=== PATIENT | female | born 1930 | race Hispanic/Latino ===

== ENCOUNTER 2018-09-30 18:35 | Emergency (ER) | payer MEDICARE ==
[~2018-09-30] VITALS: Ht 154.9 cm; Wt 55.8 kg
[~2018-09-30 18:35] MED LIST: AMIODARONE HCL200 MG PO; ASPIR-LOW81 MG PO; ASPIRIN325 MG PO; CARAFATE1 GM/10 ML PO; COREG3.125 MG; DIOVAN160 MG PO; HYDRALAZINE HC100 MG PO; ISOSORBIDE MONO30 MG PO; LASIX40 MG PO; LIPITOR20 MG PO; LISINOPRIL10 MG PO; LOPRESSOR25 MG PO; NIFEDICAL XL30 MG PO; NITRO-BID1 GM TOP; PANTOPRAZOLE SO40 MG PO; PLAVIX75 MG PO; POTASSIUM CHLO10 MEQ PO; TOPROL XL25 MG PO; ULTRAM50 MG PO
--- OUTSIDE RECORDS SUMMARY | 2018-09-30 18:38 | XMS REPORT | Clinical Summary ---
Author Author [facility] Address Unknown Phone Unavailable Care Team Providers Care Internal Control Analyst Name Role Phone Car Padilla MD PCP Allergies Comments Active Allergy Reactions Severity Noted Date Chest pain Diphenhydramine Hcl Other (See Low 06/29/2017 Comments) Neck Stiffness Iodine And Iodide Rash Low 06/29/2017 Containing Products Medications End Date Status Medication Sig Dispensed Refills Start Date Active metoprolol (TOPROL-XL) 25 Take 25 mg by 0 MG 24 hr tablet mouth daily. Active traMADol (ULTRAM) 50 mg Take 1 tablet 30 tablet 0 tablet (50 mg total) 7 by mouth 2 (two) times daily as needed for Pain. Max Daily Amount: 100 mg Active isosorbide mononitrate Take 1 tablet 30 tablet 0 (IMDUR) 60 MG 24 hr (60 mg total) 7 tablet by mouth daily. 06/26/2018 acetaminophen (TYLENOL) Take 2 30 tablet 0 325 MG tablet tablets (650 7 mg total) by mouth every 6 (six) hours as needed for Pain for up to 360 days. 07/02/2018 folic acid (FOLVITE) 1 MG Take 1 tablet 30 tablet 0 tablet (1 mg total) 7 by mouth daily You may take this over the counter if you like. 07/07/2018 ergocalciferol Take 1 4 capsule 0 (ERGOCALCIFEROL) 50,000 capsule 7 unit capsule (50,000 Units total) by mouth once a week. 07/02/2018 clopidogrel (PLAVIX) 75 Take 1 tablet 30 tablet 0 mg tablet (75 mg total) 7 by mouth daily. 07/01/2018 atorvastatin (LIPITOR) 80 Take 1 tablet 30 tablet 0 MG tablet (80 mg total) 7 by mouth nightly. 07/02/2018 aspirin 81 MG chewable Take 1 tablet 30 tablet 0 tablet (81 mg total) 7 by mouth daily You may take this over the counter. 07/02/2018 amLODIPine (NORVASC) 5 MG Take 1 tablet 30 tablet 0 tablet (5 mg total) 7 by mouth daily. Active Problems Problem Noted Date Elevated troponin 06/29/2017 Hypertension 06/29/2017 CKD (chronic kidney disease) stage 5, GFR less than 15 ml/min 06/29/2017 Coronary artery disease 06/29/2017 Immunizations Name Dates Previously Given Next Due Influenza High Dose 06/29/2017 Preservative Free IM Family History Medical History Relation Name Comments No Known Problem Father No Known Problem Mother Relation Name Status Comments Father Mother Social History Date Tobacco Use Types Packs/Day Years Used Never Smoker Smokeless Tobacco: Never Used Alcohol Use Drinks/Week oz/Week Comments No Sex Assigned at Date Recorded Not on file Industry Job Start Date Occupation Not on file Not on file Not on file Travel End Travel History Travel Start No recent travel history available. Last Filed Vital Signs Not on file Plan of Treatment Not on file Results Not on fileafter 09/29/2017 Insurance Payer Benefit Subscriber ID Type Phone Address Plan / Group [facility] MEDICARE [employer]GD [facility] xxxxxxxx [employer] (Home) [place] [address] Advance Directives For more information, please contact: [facility] [address] [place] [address] Date Inactivated Comments Code Status Date Activated 07/01/2017 2:31 PM Partial Code 06/29/2017 4:27 AM This code status was determined by: Patient Drug Protocol After Arrest Occurs? Yes Mechanical Ventilation with Intubation? No Bag/Mask? No Internal/External Pacemaker? No Transfer to Critical Care? No Chest Compressions? No Defibrillation/Cardioversion? No
--- OUTSIDE RECORDS SUMMARY | 2018-09-30 18:39 | XMS REPORT ---
Author Author [facility] Address Unknown Phone Unavailable Care Team Providers Care Customer Supply Coordinator Name Role Phone MER LUGO Unavailable Unavailable SWEET, Chan LAIRD Unavailable Unavailable Problems This patient has no known problems. Allergies, Adverse Reactions, Alerts This patient has no known allergies or adverse reactions. Medications This patient has no known medications. Results Test Description Test Time Test Comments Text Results Atomic Results Result Comments IMMUNOFIXATION ELECTROPHORESIS (KELSEY) 2017-07-13 09:06:00 IMMUNOGLOBULIN G (IGG) (BEAKER) (test hvky=064) mg/dL 540-1822 Test not performed. IMMUNOGLOBULIN A (IGA) (BEAKER) (test fxgo=991) mg/dL 63-484 Test not performed IMMUNOGLOBULIN M (IGM) (BEAKER) (test hrqh=598) mg/dL 22-293 Test not performed. SERUM KELSEY ID (BEAKER) (test cuxh=9650) Immunofixation studies reveal one free lambda monoclonal protine, and two trace concentration bands which appear to type as IgG-kappa monoclonal proteins. [id number] (BEAKER) (test pbgo=1763) Test performed and interpreted by [facility]. PROTEIN ELECTROPHORESIS, [id number] 16:38:00* Test Item Value Reference Range Comments ALBUMIN FRACTION (BEAKER) (test jeje=323) 3.5 gm/dL 3.5-5.5 RR: 3.8-4.8 g/dL ALPHA 1 FRACTION (BEAKER) (test cyna=073) 0.3 gm/dL 0.2-0.4 RR: 0.2-0.3 g/dL ALPHA 2 FRACTION (BEAKER) (test mtnu=043) 0.5 gm/dL 0.5-0.9 BETA FRACTION (BEAKER) (test idjk=569) 0.6 gm/dL 0.6-1.1 GAMMA GLOBULIN FRACTION (BEAKER) (test uwog=959) 1.1 gm/dL 0.7-1.7 RR: 0.8-1.7 g/dL INTERPRETATION-119 (BEAKER) (test xurr=0328) Evaluation reveals one or more faint restricted bands migrating in the gamma region. Consider immunofixation analysis if indicated. [id number] (BEAKER) (test hfil=6835) Test performed and interpreted by [facility]. PROTEIN TOTAL SERUM, SPEP (BEAKER) (test derh=1143) 6.0 gm/dL 6.0-8.3 RR: 6.1- 8.1 g/dL BASIC METABOLIC [id number] 06:57:00* Test Item Value Reference Range Comments SODIUM (BEAKER) (test jvmy=923) 139 meq/L 136-145 POTASSIUM (BEAKER) (test aowx=698) 4.2 meq/L 3.5-5.1 CHLORIDE (BEAKER) (test repa=360) 115 meq/L 98-107 CO2 (BEAKER) (test jdlw=385) 17 meq/L 22-29 BLOOD UREA NITROGEN (BEAKER) (test ctii=237) 47 mg/dL 7-21 CREATININE (BEAKER) (test olfu=070) 2.71 mg/dL 0.57-1.25 GLUCOSE RANDOM (BEAKER) (test kswq=275) 85 mg/dL 70-105 CALCIUM (BEAKER) (test uadu=471) 8.3 mg/dL 8.4-10.2 EGFR (BEAKER) (test aaes=8706) 17 mL/min/1.73 sq m ESTIMATED GFR IS NOT ACCURATE CREATININE CLEARANCE IN PREDICTING GLOMERULAR FILTRATION RATE. ESTIMATED GFR IS NOT APPLICABLE FOR DIALYSIS PATIENTS. [id number] 06:56:00* Test Item Value Reference Range Comments PHOSPHORUS (BEAKER) (test nsbg=594) 2.6 mg/dL 2.3-4.7 [id number] 06:56:00* Test Item Value Reference Range Comments MAGNESIUM (BEAKER) (test stmy=328) 2.2 mg/dL 1.6-2.6 CBC W/PLT COUNT & AUTO [id number] 06:24:00* Test Item Value Reference Range Comments WHITE BLOOD CELL COUNT (BEAKER) (test osaz=077) 3.5 K/ L 3.5-10.5 RED BLOOD CELL COUNT (BEAKER) (test syay=209) 2.62 M/ L 3.93-5.22 HEMOGLOBIN (BEAKER) (test osul=453) 8.0 GM/DL 11.2-15.7 HEMATOCRIT (BEAKER) (test wjje=548) 25.0 % 34.1-44.9 MEAN CORPUSCULAR VOLUME (BEAKER) (test nyuz=944) 95.4 fL 79.4-94.8 MEAN CORPUSCULAR HEMOGLOBIN (BEAKER) (test nxzl=810) 30.5 pg 25.6-32.2 MEAN CORPUSCULAR HEMOGLOBIN CONC (BEAKER) (test jrvg=398) 32.0 GM/DL 32.2-35.5 RED CELL DISTRIBUTION WIDTH (BEAKER) (test wqdu=118) 14.0 % 11.7-14.4 PLATELET COUNT (BEAKER) (test zxpt=063) 127 K/CU MM 150-450 MEAN PLATELET VOLUME (BEAKER) (test zmrq=512) 11.4 fL 9.4-12.3 NUCLEATED RED BLOOD CELLS (BEAKER) (test fwyt=315) 0 /100 WBC 0-0 NEUTROPHILS RELATIVE PERCENT (BEAKER) (test oukq=184) 43 % LYMPHOCYTES RELATIVE PERCENT (BEAKER) (test acwo=328) 30 % MONOCYTES RELATIVE PERCENT (BEAKER) (test lyst=105) 18 % EOSINOPHILS RELATIVE PERCENT (BEAKER) (test fpcu=946) 8 % BASOPHILS RELATIVE PERCENT (BEAKER) (test ekax=083) 1 % NEUTROPHILS ABSOLUTE COUNT (BEAKER) (test jetd=242) 1.48 K/ L 1.56-6.13 LYMPHOCYTES ABSOLUTE COUNT (BEAKER) (test xknu=572) 1.04 K/ L 1.18-3.74 MONOCYTES ABSOLUTE COUNT (BEAKER) (test qwuy=557) 0.62 K/ L 0.24-0.36 EOSINOPHILS ABSOLUTE COUNT (BEAKER) (test dimb=036) 0.29 K/ L 0.04-0.36 BASOPHILS ABSOLUTE COUNT (BEAKER) (test ipks=023) 0.02 K/ L 0.01-0.08 IMMATURE GRANULOCYTES-RELATIVE PERCENT (BEAKER) (test qsqn=9466) 0 % 0-1 CBC (HEMOGRAM ONLY)2017-07-01 06:23:00* Test Item Value Reference Range Comments WHITE BLOOD CELL COUNT (BEAKER) (test ulib=854) 3.5 K/ L 3.5-10.5 RED BLOOD CELL COUNT (BEAKER) (test ihgo=196) 2.62 M/ L 3.93-5.22 HEMOGLOBIN (BEAKER) (test fwpx=109) 8.0 GM/DL 11.2-15.7 HEMATOCRIT (BEAKER) (test xeec=295) 25.0 % 34.1-44.9 MEAN CORPUSCULAR VOLUME (BEAKER) (test nfax=594) 95.4 fL 79.4-94.8 MEAN CORPUSCULAR HEMOGLOBIN (BEAKER) (test jsbo=135) 30.5 pg 25.6-32.2 MEAN CORPUSCULAR HEMOGLOBIN CONC (BEAKER) (test obiu=245) 32.0 GM/DL 32.2-35.5 RED CELL DISTRIBUTION WIDTH (BEAKER) (test dnun=626) 14.0 % 11.7-14.4 PLATELET COUNT (BEAKER) (test cbej=881) 127 K/CU MM 150-450 MEAN PLATELET VOLUME (BEAKER) (test vaop=938) 11.4 fL 9.4-12.3 NUCLEATED RED BLOOD CELLS (BEAKER) (test lpsd=119) 0 /100 WBC 0-0 CBC W/PLT COUNT & AUTO [id number] 11:57:00* Test Item Value Reference Range Comments WHITE BLOOD CELL COUNT (BEAKER) (test yzgo=216) 3.8 K/ L 3.5-10.5 RED BLOOD CELL COUNT (BEAKER) (test dcug=603) 2.91 M/ L 3.93-5.22 HEMOGLOBIN (BEAKER) (test leki=258) 9.1 GM/DL 11.2-15.7 HEMATOCRIT (BEAKER) (test aoil=864) 27.5 % 34.1-44.9 MEAN CORPUSCULAR VOLUME (BEAKER) (test mczs=523) 94.5 fL 79.4-94.8 MEAN CORPUSCULAR HEMOGLOBIN (BEAKER) (test oyqi=506) 31.3 pg 25.6-32.2 MEAN CORPUSCULAR HEMOGLOBIN CONC (BEAKER) (test ftkz=777) 33.1 GM/DL 32.2-35.5 RED CELL DISTRIBUTION WIDTH (BEAKER) (test bsln=906) 13.8 % 11.7-14.4 PLATELET COUNT (BEAKER) (test acbs=565) 128 K/CU MM 150-450 MEAN PLATELET VOLUME (BEAKER) (test fqfr=265) 11.0 fL 9.4-12.3 NUCLEATED RED BLOOD CELLS (BEAKER) (test evar=221) 0 /100 WBC 0-0 NEUTROPHILS RELATIVE PERCENT (BEAKER) (test najw=381) 53 % LYMPHOCYTES RELATIVE PERCENT (BEAKER) (test gbyl=215) 26 % MONOCYTES RELATIVE PERCENT (BEAKER) (test ljkq=888) 14 % EOSINOPHILS RELATIVE PERCENT (BEAKER) (test vwlp=226) 6 % BASOPHILS RELATIVE PERCENT (BEAKER) (test pyjk=179) 1 % NEUTROPHILS ABSOLUTE COUNT (BEAKER) (test scev=179) 2.00 K/ L 1.56-6.13 LYMPHOCYTES ABSOLUTE COUNT (BEAKER) (test gpeq=761) 1.00 K/ L 1.18-3.74 MONOCYTES ABSOLUTE COUNT (BEAKER) (test vcgq=905) 0.52 K/ L 0.24-0.36 EOSINOPHILS ABSOLUTE COUNT (BEAKER) (test culm=742) 0.23 K/ L 0.04-0.36 BASOPHILS ABSOLUTE COUNT (BEAKER) (test xlwl=914) 0.03 K/ L 0.01-0.08 IMMATURE GRANULOCYTES-RELATIVE PERCENT (BEAKER) (test ppfb=6387) 1 % 0-1 (MANUAL DIFFERENTIAL)2017-06-30 11:57:00* Test Item Value Reference Range Comments TOTAL COUNTED (BEAKER) (test nxbp=3237) WBC MORPHOLOGY (BEAKER) (test wrny=869) Normal PLT MORPHOLOGY (BEAKER) (test vsgw=881) Normal ANISOCYTOSIS (BEAKER) (test yjcp=928) 1+ few OVALOCYTES (BEAKER) (test mtzv=233) 1+ few [id number] 08:28:00* Test Item Value Reference Range Comments FERRITIN (BEAKER) (test jrrd=765) 759 ng/mL 5-275 VITAMIN D, [id number] 08:28:00* Test Item Value Reference Range Comments VITAMIN D 25-OH (BEAKER) (test kwyg=5775) 8.2 ng/mL 6.6-49.9 Effective 06/09/2017: Reference Range ChangeNew: 6.6-49.9 ng/mL Previous: 13.0 -47.8 ng/mLRecommended Vitamin D Target Range: 30.0-40.0 ng/mLVITAMIN B12 AND [id number] 08:28:00* Test Item Value Reference Range Comments VITAMIN B12 (BEAKER) (test bmds=547) 402 pg/mL 213-816 FOLATE (BEAKER) (test uudn=431) 5.0 ng/mL >=7.0 IRON, TIBC, % SAT. (WITHOUT FERRITIN)2017-06-30 07:52:00* Test Item Value Reference Range Comments IRON (BEAKER) (test urme=884) 125 ug/dL 40-160 TOTAL IRON BINDING CAPACITY (BEAKER) (test mqrr=333) 195 ug/dL 250-450 IRON % SATURATION (2) (BEAKER) (test kvxw=1511) 64 % 20-55 BASIC METABOLIC [id number] 07:31:00* Test Item Value Reference Range Comments SODIUM (BEAKER) (test rrhy=055) 139 meq/L 136-145 POTASSIUM (BEAKER) (test jgve=011) 3.4 meq/L 3.5-5.1 CHLORIDE (BEAKER) (test amic=100) 114 meq/L 98-107 CO2 (BEAKER) (test ulio=356) 17 meq/L 22-29 BLOOD UREA NITROGEN (BEAKER) (test yrcb=109) 49 mg/dL 7-21 CREATININE (BEAKER) (test mrjq=830) 2.78 mg/dL 0.57-1.25 GLUCOSE RANDOM (BEAKER) (test jlzu=000) 85 mg/dL 70-105 CALCIUM (BEAKER) (test hwla=630) 8.4 mg/dL 8.4-10.2 EGFR (BEAKER) (test csln=0736) 16 mL/min/1.73 sq m ESTIMATED GFR IS NOT ACCURATE CREATININE CLEARANCE IN PREDICTING GLOMERULAR FILTRATION RATE. ESTIMATED GFR IS NOT APPLICABLE FOR DIALYSIS PATIENTS. CBC (HEMOGRAM ONLY)2017-06-30 07:24:00* Test Item Value Reference Range Comments WHITE BLOOD CELL COUNT (BEAKER) (test opae=875) 3.8 K/ L 3.5-10.5 RED BLOOD CELL COUNT (BEAKER) (test kymt=177) 2.91 M/ L 3.93-5.22 HEMOGLOBIN (BEAKER) (test wmei=852) 9.1 GM/DL 11.2-15.7 HEMATOCRIT (BEAKER) (test ypry=956) 27.5 % 34.1-44.9 MEAN CORPUSCULAR VOLUME (BEAKER) (test yztt=088) 94.5 fL 79.4-94.8 MEAN CORPUSCULAR HEMOGLOBIN (BEAKER) (test wbuo=084) 31.3 pg 25.6-32.2 MEAN CORPUSCULAR HEMOGLOBIN CONC (BEAKER) (test kckt=817) 33.1 GM/DL 32.2-35.5 RED CELL DISTRIBUTION WIDTH (BEAKER) (test ngln=078) 13.8 % 11.7-14.4 PLATELET COUNT (BEAKER) (test winh=476) 128 K/CU MM 150-450 MEAN PLATELET VOLUME (BEAKER) (test zokq=791) 11.0 fL 9.4-12.3 NUCLEATED RED BLOOD CELLS (BEAKER) (test ctko=634) 0 /100 WBC 0-0 [id number] 07:21:00* Test Item Value Reference Range Comments PHOSPHORUS (BEAKER) (test boik=100) 2.7 mg/dL 2.3-4.7 [id number] 07:21:00* Test Item Value Reference Range Comments MAGNESIUM (BEAKER) (test fxdq=530) 1.6 mg/dL 1.6-2.6 PTH, [id number] 07:16:00* Test Item Value Reference Range Comments PARATHYROID HORMONE INTACT (BEAKER) (test rjwf=808) 394.8 pg/mL 8.5-72.5 [id number] 07:13:00* Test Item Value Reference Range Comments PARTIAL THROMBOPLASTIN TIME (BEAKER) (test ewjp=227) 93.2 seconds 22.5-36.0 U/S, RENAL, [id number] 06:40:00Reason for exam:->ckdShould this be performed at the bedside?->NoFINAL REPORT Comparison examination: None Right kidney : 7.8 x 3.9 x 4.5 cmNo hydronephrosis. No renal stones. Echogenic renal parenchyma. Renal parenchymal thickness: 8 mmNo renal masses. No renal cysts. Left kidney : 8.1 x 3.2 x 4.1 cmNo hydronephrosis. No renal stones. Echogenic renal parenchyma. Renal parenchymal thickness: 7 mmNo renal masses. No renal cysts. Normal bladder morphology with bilateral ureteral jets identified. Bladder volume equals 88 cc Impression: Small echogenic kidneys consistent with chronic medical renal disease. Signed: Rolo Anderson MDReport Verified Date/Time: 06/30/2017 06:40:18 Reading Location: [facility] [id number] [facility] Consult Reading Room ALYSIS W/ [id number] 03:50:00* Test Item Value Reference Range Comments COLOR (BEAKER) (test dtyv=363) Light Yellow CLARITY (BEAKER) (test nbvj=761) Clear SPECIFIC GRAVITY UA (BEAKER) (test qupm=037) 1.009 1.001-1.035 PH UA (BEAKER) (test wndk=465) 6.5 5.0-8.0 PROTEIN UA (BEAKER) (test ggan=138) 30 mg/dL Negative GLUCOSE UA (BEAKER) (test hvno=395) 70 mg/dL Negative KETONES UA (BEAKER) (test ugbv=224) Negative Negative BILIRUBIN UA (BEAKER) (test pael=483) Negative Negative BLOOD UA (BEAKER) (test gedz=972) Trace Negative NITRITE UA (BEAKER) (test jfpv=088) Negative Negative LEUKOCYTE ESTERASE UA (BEAKER) (test cxvg=238) Trace Negative UROBILINOGEN UA (BEAKER) (test vaal=749) 0.2 mg/dL 0.2-1.0 RBC UA (BEAKER) (test jbqm=587) 7 /HPF WBC UA (BEAKER) (test mkzc=582) 7 /HPF BACTERIA (BEAKER) (test rbxn=874) Rare MUCUS (BEAKER) (test ppoo=2603) Rare SQUAMOUS EPITHELIAL (BEAKER) (test bfhc=747) 3 /HPF AMORPHOUS CRYSTALS (BEAKER) (test ikcj=6331) Rare SOURCE(BEAKER) (test gaql=8552) [id number] 00:33:00* Test Item Value Reference Range Comments PARTIAL THROMBOPLASTIN TIME (BEAKER) (test ddbg=432) 69.8 seconds 22.5-36.0 [id number] 16:31:00* Test Item Value Reference Range Comments PARTIAL THROMBOPLASTIN TIME (BEAKER) (test thon=162) 44.9 seconds 22.5-36.0 URINALYSIS W/ [id number] 16:06:00* Test Item Value Reference Range Comments COLOR (BEAKER) (test xmsp=486) Yellow CLARITY (BEAKER) (test kyei=698) Hazy SPECIFIC GRAVITY UA (BEAKER) (test pvqp=061) 1.012 1.001-1.035 PH UA (BEAKER) (test qtmy=882) 5.5 5.0-8.0 PROTEIN UA (BEAKER) (test zmdh=733) 50 mg/dL Negative GLUCOSE UA (BEAKER) (test mgqp=002) 200 mg/dL Negative KETONES UA (BEAKER) (test utzy=779) Negative Negative BILIRUBIN UA (BEAKER) (test lyez=030) Negative Negative BLOOD UA (BEAKER) (test twus=430) Trace Negative NITRITE UA (BEAKER) (test zucw=936) Negative Negative LEUKOCYTE ESTERASE UA (BEAKER) (test bfch=003) Large Negative UROBILINOGEN UA (BEAKER) (test ouxr=220) 0.2 mg/dL 0.2-1.0 RBC UA (BEAKER) (test mgpt=777) 3 /HPF WBC UA (BEAKER) (test fgii=344) 26 /HPF BACTERIA (BEAKER) (test thtn=442) Occasional MUCUS (BEAKER) (test omql=2511) Occasional SQUAMOUS EPITHELIAL (BEAKER) (test yivo=141) 1 /HPF GRANULAR CASTS (BEAKER) (test ccic=637) 3 /LPF SOURCE(BEAKER) (test uout=2317) Urine, Voided HEMOGLOBIN [id number] 14:19:00* Test Item Value Reference Range Comments HEMOGLOBIN A1C (BEAKER) (test pmcx=487) 5.3 % 4.3-6.1 CBC W/PLT COUNT & AUTO [id number] 14:03:00* Test Item Value Reference Range Comments WHITE BLOOD CELL COUNT (BEAKER) (test klbx=847) 4.7 K/ L 3.5-10.5 RED BLOOD CELL COUNT (BEAKER) (test ncnp=551) 2.95 M/ L 3.93-5.22 HEMOGLOBIN (BEAKER) (test ickk=474) 9.1 GM/DL 11.2-15.7 HEMATOCRIT (BEAKER) (test oepq=867) 28.4 % 34.1-44.9 MEAN CORPUSCULAR VOLUME (BEAKER) (test ffmp=845) 96.3 fL 79.4-94.8 MEAN CORPUSCULAR HEMOGLOBIN (BEAKER) (test wnnn=732) 30.8 pg 25.6-32.2 MEAN CORPUSCULAR HEMOGLOBIN CONC (BEAKER) (test bpes=316) 32.0 GM/DL 32.2-35.5 RED CELL DISTRIBUTION WIDTH (BEAKER) (test sqmk=330) 13.8 % 11.7-14.4 PLATELET COUNT (BEAKER) (test nzfl=011) 128 K/CU MM 150-450 MEAN PLATELET VOLUME (BEAKER) (test pdqa=535) 11.1 fL 9.4-12.3 NUCLEATED RED BLOOD CELLS (BEAKER) (test xyzi=492) 0 /100 WBC 0-0 NEUTROPHILS RELATIVE PERCENT (BEAKER) (test amvo=156) 52 % LYMPHOCYTES RELATIVE PERCENT (BEAKER) (test uhsz=814) 28 % MONOCYTES RELATIVE PERCENT (BEAKER) (test ekhz=326) 14 % EOSINOPHILS RELATIVE PERCENT (BEAKER) (test ycfu=418) 5 % BASOPHILS RELATIVE PERCENT (BEAKER) (test wdaq=737) 1 % NEUTROPHILS ABSOLUTE COUNT (BEAKER) (test vzfz=107) 2.46 K/ L 1.56-6.13 LYMPHOCYTES ABSOLUTE COUNT (BEAKER) (test qupb=044) 1.30 K/ L 1.18-3.74 MONOCYTES ABSOLUTE COUNT (BEAKER) (test qdhf=929) 0.66 K/ L 0.24-0.36 EOSINOPHILS ABSOLUTE COUNT (BEAKER) (test peto=465) 0.24 K/ L 0.04-0.36 BASOPHILS ABSOLUTE COUNT (BEAKER) (test ogvb=207) 0.03 K/ L 0.01-0.08 IMMATURE GRANULOCYTES-RELATIVE PERCENT (BEAKER) (test drdg=8480) 0 % 0-1 TROPONIN [id number] 13:11:00* Test Item Value Reference Range Comments TROPONIN I (BEAKER) (test vwbc=926) 1.29 ng/mL 0.00-0.03 Troponin I (TnI) levels must be interpreted in the context of the presenting sym ptoms and the clinical findings. Elevated TnI levels indicate myocardial damage, but are not specific for ischemic heart disease. Elevated TnI levels are seen in patients with other cardiac conditions (including myocarditis and congestive h eart failure), and slight TnI elevations occur in patients with other conditions , including sepsis, renal failure, acidosis, acute neurological disease, and per sistent tachyarrhythmia.[id number] 09:15:00* Test Item Value Reference Range Comments PARTIAL THROMBOPLASTIN TIME (BEAKER) (test wigd=034) 65.2 seconds 22.5-36.0 CREATINE KINASE (CK), TOTAL AND [id number] 08:34:00* Test Item Value Reference Range Comments CREATINE KINASE TOTAL (BEAKER) (test llna=112) 60 U/L 29-200 CREATINE KINASE-MB (BEAKER) (test pmvg=901) 4.1 ng/mL 0.0-6.6 CREATINE KINASE-MB INDEX (BEAKER) (test akcb=647) 6.8 % CK-MB Reference Range:<6.7 Normal6.7-10.0 Borderline>10.0 Abnormal TROPONIN [id number] 08:11:00* Test Item Value Reference Range Comments TROPONIN I (BEAKER) (test jjmu=271) 1.66 ng/mL 0.00-0.03 Troponin I (TnI) levels must be interpreted in the context of the presenting sym ptoms and the clinical findings. Elevated TnI levels indicate myocardial damage, but are not specific for ischemic heart disease. Elevated TnI levels are seen in patients with other cardiac conditions (including myocarditis and congestive h eart failure), and slight TnI elevations occur in patients with other conditions , including sepsis, renal failure, acidosis, acute neurological disease, and per sistent tachyarrhythmia.BASIC METABOLIC [id number] 07:56:00* Test Item Value Reference Range Comments SODIUM (BEAKER) (test qmxr=941) 137 meq/L 136-145 POTASSIUM (BEAKER) (test yycz=338) 3.6 meq/L 3.5-5.1 CHLORIDE (BEAKER) (test mnte=806) 114 meq/L 98-107 CO2 (BEAKER) (test lgkb=827) 13 meq/L 22-29 BLOOD UREA NITROGEN (BEAKER) (test ohel=410) 54 mg/dL 7-21 CREATININE (BEAKER) (test avaj=373) 3.20 mg/dL 0.57-1.25 GLUCOSE RANDOM (BEAKER) (test pmya=954) 107 mg/dL 70-105 CALCIUM (BEAKER) (test ngfh=815) 9.1 mg/dL 8.4-10.2 EGFR (BEAKER) (test vunt=4919) 14 mL/min/1.73 sq m ESTIMATED GFR IS NOT ACCURATE CREATININE CLEARANCE IN PREDICTING GLOMERULAR FILTRATION RATE. ESTIMATED GFR IS NOT APPLICABLE FOR DIALYSIS PATIENTS. LIPID [id number] 07:31:00* Test Item Value Reference Range Comments TRIGLYCERIDES (BEAKER) (test xjgq=250) 75 mg/dL CHOLESTEROL (BEAKER) (test jqsz=426) 160 mg/dL HDL CHOLESTEROL (BEAKER) (test igyh=923) 50 mg/dL LDL CHOLESTEROL CALCULATED (BEAKER) (test zsdw=236) 95 mg/dL Triglyceride Reference Range: Low Risk <150 Borderline 150-199 High Risk 200-499 Very High Risk >=500Cholesterol Reference Range: Low Risk <200 Borderline 200-239 High Risk >240HDL Cholesterol Reference Range: Low Risk >=60 High Risk <40LDL Cholesterol Reference Range: Optimal <100 Near Optimal 100-129 Borderline 130-159 High 160-189 Very High >=190 HEPATIC FUNCTION [id number] 07:31:00* Test Item Value Reference Range Comments TOTAL PROTEIN (BEAKER) (test ploe=676) 6.4 gm/dL 6.0-8.3 ALBUMIN (BEAKER) (test eksl=0155) 3.4 g/dL 3.5-5.0 BILIRUBIN TOTAL (BEAKER) (test yahj=983) 0.5 mg/dL 0.2-1.2 BILIRUBIN DIRECT (BEAKER) (test aybo=588) 0.2 mg/dL 0.1-0.5 ALKALINE PHOSPHATASE (BEAKER) (test nbwg=861) 89 U/L 40-150 AST (SGOT) (BEAKER) (test kegp=241) 17 U/L 5-34 ALT (SGPT) (BEAKER) (test gzzd=912) 8 U/L 6-55 RAD, CHEST, 1 VIEW, NON [id number] 07:28:00Reason for exam:->chest painShould this be performed at the bedside?->YesFINAL REPORT Chest one view. Clinical history: chest pain Comparison: No priors Discussion: A frontal chest is provided. Cardiac silhouette is mildly enlarged and may be partly magnified by portable technique. Aorta is calcified, and appears tortuous/ectatic. The superior mediastinum appears widened, particularly in the left paratracheal region. If no prior exams available for comparison, CT correlation may be considered. No consolidation is identified. There is no janis pulmonary edema, pneumothorax, or large effusion. Osseous structures demonstrate degenerative changes. Signed: Don Ybarra Verified Date/Time: 06/29/2017 07:28:36 Reading Location: [facility] Radiology Reading Room [id number] 07:00:00* Test Item Value Reference Range Comments PARTIAL THROMBOPLASTIN TIME (BEAKER) (test pqbl=555) 159.1 seconds 22.5-36.0 Prior to initiating heparinPLATELET [id number] 04:42:00* Test Item Value Reference Range Comments PLATELET COUNT (BEAKER) (test cxul=870) 131 K/CU MM 150-450 Baseline and daily starting prior to initiation of heparin infusionCBC (HEMOGRAM ONLY)2017-06-29 04:42:00* Test Item Value Reference Range Comments WHITE BLOOD CELL COUNT (BEAKER) (test yzmx=641) 4.7 K/ L 3.5-10.5 RED BLOOD CELL COUNT (BEAKER) (test fodv=432) 2.79 M/ L 3.93-5.22 HEMOGLOBIN (BEAKER) (test hdsc=369) 8.4 GM/DL 11.2-15.7 HEMATOCRIT (BEAKER) (test lhhr=792) 26.8 % 34.1-44.9 MEAN CORPUSCULAR VOLUME (BEAKER) (test whvb=942) 96.1 fL 79.4-94.8 MEAN CORPUSCULAR HEMOGLOBIN (BEAKER) (test vrgd=260) 30.1 pg 25.6-32.2 MEAN CORPUSCULAR HEMOGLOBIN CONC (BEAKER) (test pvrq=259) 31.3 GM/DL 32.2-35.5 RED CELL DISTRIBUTION WIDTH (BEAKER) (test cxmm=409) 13.8 % 11.7-14.4 PLATELET COUNT (BEAKER) (test goug=719) 131 K/CU MM 150-450 MEAN PLATELET VOLUME (BEAKER) (test hfop=402) 11.2 fL 9.4-12.3 NUCLEATED RED BLOOD CELLS (BEAKER) (test eoej=008) 0 /100 WBC 0-0 CHEST 2 VIEWS [place] [address] Patient Name: EMILIANA LOZA MR #: [id number] : 1930 Age/Sex: 87/F Req #: [id number] Adm Physician: Ordered by: MITRA FROST MD Report #: [id number] Location: ER Room/Bed: Procedure: [id number] DX/CHEST 2 VIEWS Exam Date: Exam Time: 1950 REPORT STATUS: Signed Two view chest x-ray INDICATION: Chest pain COMPARISON: Chest x-ray 02/21/2016. FINDINGS: The heart is top normal in size. Marked aortic ectasia is redemonstrated. Pulmonary arteries are normal in size. There is no evidence of hilar lymphadenopathy. The pulmonary vascular markings are normal. There is no evidence of focal consolidation. There is trace blunting of the right posterior costophrenic angle. Evaluation of the osseous structures d emonstrates diffuse demineralization. No focal osseous lesions. IMPRESSIO N: 1. No significant change in aortic ectasia. 2. Trace blunting of th e right posterior costophrenic angle could be due to pleural effusion or pleur al thickening. 3. No airspace opacities. Signed by: Dr. Noam coombs MD on 06/28/2017 8:13 PM Dictated By: NOAM christian Signed By: NOAM ROBERSON MD on 06/28/172012 Transcribed By: VALENTÍN on 06/28/172012 COPY TO: MITRA FROST MD CT BRAIN WO [place] [address] Patient Name: EMILIANA LOZA MR #: [id number] : 1930 Age/Sex: 87/F Req #: [id number] Adm Physician: Ordered by: MITRA FROST MD Report #: [id number] Location: ER Room/Bed: Procedure: [id number] CT/CT BRAIN WO Exam Date: Exam Time: REPORT STATUS: Signed EXAMINATION: Head CT without contrast. HISTORY:Headache. COMPARISON:CT brain from 10/09/2016. TECHNIQUE: Multidetector axial images were obtained from th e foramen magnum to the vertex without contrast. The images were reconstructed using brain and bone algorithms. Thin section brain images were reformatted into coronal and sagittal planes. Intravenous contrast: None IMAGE QUALITY: Acceptable. FINDINGS: Skull/scalp: No abnormality. Par enchyma: Nonspecific supratentorial white matter patchy hypodensity are small vessel ischemic changes. No acute hemorrhage, mass or acute major vascular ter ritorial infarct. Arteries: Mild atherosclerotic calcification in bilatera l carotid siphon and V4 segment of left vertebral artery. Dural sinuses: No abnormal density suggestive of thrombosis. Ventricles: Moderate compe nsated tree dilatation due to volume loss. No hydrocephalus. Extra-axial spaces: No abnormal density. Brain volume: Generalized age-related cere bral volume loss. Craniocervical junction: No mass, Chiari malformation, o r basilar invagination. Sella: No mass. Paranasal/mastoid sinuses : Imaged portions unremarkable. IMPRESSION: No acute intracranial abnorma lity. Chronic findings: 1. Moderate generalized age-related cerebral volu me loss. 2. Mild supratentorial white matter microvascular ischemic changes. Signed by: Dr. Ashley Yan M.D. on 06/28/2017 8:21 PM Dictated B y: ASHLEY YAN MD 20 Transcribed By: VALENTÍN on 06/28/172020 COPY TO: MITRA FROST MD
--- NOTE | 2018-09-30 20:06 | Diagnostic Imaging Report ---
EXAM: CT Abdomen and Pelvis WITHOUT contrast INDICATION: Pain COMPARISON: None. TECHNIQUE: Abdomen and Pelvis was scanned utilizing a multidetector helical scanner without the use of IV contrast. Coronal and sagittal reformations were obtained. IV CONTRAST: None COMPLICATIONS: None RADIATION DOSE: Total DLP: 494 mGy*cm Estimated effective dose: (DLP x 0.015 x size factor) mSv CTDIvol has been reviewed. It is below the limits set by the Radiation Protocol Committee (RPC). Appropriate CT dose reduction techniques were utilized. FINDINGS: Abdomen: Lung Bases: Minimal bronchiectasis present predominantly right lung base with minimal nodularity along dilated bronchus right lower lobe measuring approximate 7 mm image 19. Solid Organs: Nonenhanced images of the liver, adrenals, spleen, and pancreas are unremarkable. Nonspecific prominence of the common duct. No renal calculi. No definite ureteral calculi although vascular calcifications are directly adjacent to both mid/lower ureters. Upper GI Tract: Decompressed stomach limits evaluation. No small bowel obstructive changes. Vascularity: Moderate calcifications of the aorta with infrarenal ectasia 29 mm. Lymph Nodes: No suspicious adenopathy. Other: Moderate fat-containing umbilical hernia. Pelvis: Bladder: Decompressed, limiting evaluation. Other: Uterus unremarkable. Colon: Moderate diverticulosis predominantly involving the descending/sigmoid colon. No distinct inflammatory changes. Bones: No acute findings. IMPRESSION: 1. No definite acute finding. 2. Diverticulosis. 3. Moderate ventral wall hernia. 4. Bronchiectasis right lung base with minimal nodularity. [address] chest follow-up. 5. 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 Signed by: Dr. Corwin Jang MD on 09/30/2018 8:02 PM
== END 2018-09-30 20:30 | disposition home or self-care (01) ==
LOC: FSED 18:35
DX: R10.31 Right lower quadrant pain (principal); N18.9 Chronic kidney disease, unspecified; D64.9 Anemia, unspecified; E78.5 Hyperlipidemia, unspecified
CPT/HCPCS: 74176; 80053; 81003; 85025; 99283

== ENCOUNTER → 2018-10-14 | Outpatient (CLI) | payer MEDICARE ==
--- NOTE | 2018-10-14 11:35 | Diagnostic Imaging Report ---
EXAMINATION: CHEST 2 VIEWS INDICATION: Shortness of breath. COMPARISON: Chest radiograph 06/28/2017. FINDINGS: TUBES and LINES: None. LUNGS: Lungs are well inflated. Mild patchy left basilar opacity, likely atelectasis. There is no evidence of pneumonia or pulmonary edema. PLEURA: No pleural effusion or pneumothorax. HEART AND MEDIASTINUM: Tortuous and ectatic thoracic aorta. Atherosclerotic calcifications of the aortic arch. No evidence of cardiomegaly. BONES AND SOFT TISSUES: No acute osseous lesion. Soft tissues are unremarkable. UPPER ABDOMEN: No free air under the diaphragm. Atherosclerotic calcifications of the abdominal aorta. IMPRESSION: No acute radiographic abnormality. Signed by: Dr. Rufino Simpson MD on 10/14/2018 11:31 AM
== END ==
LOC: RAD 10:33
DX: R06.02 Shortness of breath (principal)
CPT/HCPCS: 71046